=== PATIENT | male | born 1955 | race Caucasian/White ===

== ENCOUNTER 2017-10-20 08:12 | Day surgery (SDC) | payer MEDICAID ==
[~2017-10-20] VITALS: Ht 167.6 cm; Wt 135.5 kg
--- NOTE | ~2017-10-20 | OP ---
PATIENT NAME: LISETTE WRIGHT MEDICAL RECORD: [id number] :59 LOCATION:D.OPS ADMISSION DATE: SURGEON: OCHOA QUIROZ DO DATE OF OPERATION: 10/20/2017 PROCEDURE: Colonoscopy with biopsies. INDICATIONS FOR PROCEDURE: Hematochezia, diarrhea, change in bowel habits. SCOPE: Olympus video pediatric colonoscope. MEDICATIONS: Propofol 360 mg IV per anesthesia. WITHDRAWAL TIME: 13 minutes. ESTIMATED BLOOD LOSS: Minimal. COMPLICATIONS: None. FINDINGS: Informed consent was given. The patient was made comfortable with the above medication. After reaching an adequate level of sedation by slow IV push, the patient was placed on his left side. A digital rectal examination was performed and was normal. The endoscope was then advanced under direct visualization through the rectum to the terminal ileum. The scope was slowly withdrawn and the mucosa was carefully examined. The prep quality was good. There were no polyps or diverticula visualized on today's examination. During the procedure, stool was collected to submit for ruling out of infectious processes, which can cause diarrhea. Random biopsies were taken throughout all segments of the colon. Retroflexion was performed in the rectum with visualization of grade I internal hemorrhoids without evidence of bleeding. The endoscope was then withdrawn from the patient. The patient tolerated the procedure well and there were no complications. IMPRESSION: 1. Grade I internal hemorrhoids. 2. Otherwise, normal colonoscopy. PLAN AND RECOMMENDATIONS: 1. Discharge home when recovery parameters are met. 2. Follow up biopsy specimen results and stool studies. 3. Continue current medications. 4. High fiber diet. 5. Trial of cholestyramine 4 g p.o. b.i.d. to bulk up stool. 6. Consider Viberzi if cholestyramine is ineffective or subpar to control the loose stools. 7. Recall colonoscopy in 7 to 10 years for colorectal cancer screening. TRANSINT:[id number] Voice Confirmation ID: [id number] DOCUMENT ID: [id number] OPERATIVE REPORT [id number] LISETTE WRIGHT OCHOA QUIROZ DO CC: [id number] DICTATION DATE: 10/20/17 1049 GENERAL ADMINISTRATOR: 10/20/17 1248 [facility] 10/20/17 [place] [address]
[2017-10-20] MEDS ORDERED: OMEPRAZOLE20 M1 PO (08:31)
[2017-10-20] MEDS ORDERED: LOVASTATIN10 MG PO (08:32)
[2017-10-20] MEDS ORDERED: ZESTORETIC 20/21 TAB PO (08:32)
[2017-10-20] MEDS ORDERED: TOPROL XL100 MG PO (08:32)
[2017-10-20] MEDS ORDERED: ASPIRIN81 MG PO (08:34)
[2017-10-20] MEDS ORDERED: CYCLOBENZAPRINE10 MG PO (08:34)
[2017-10-20] MEDS ORDERED: FISH OIL 1,2001 CAP PO (08:35)
[2017-10-20] MEDS ORDERED: REQUIP1 MG PO (08:36)
[2017-10-20] MEDS ORDERED: ACETAMINOPHEN500 M1 PO (08:37)
[2017-10-20] MEDS ORDERED: VOLTAREN75 MG PO (08:37)
[2017-10-20] MEDS ORDERED: CENTRUM SILVER1 TA1 PO (08:37)
[2017-10-20] MEDS ORDERED: MELATONIN5 MG PO (08:38)
[2017-10-20] MEDS ORDERED: ACIDOPHILUS LAC1 CAP PO (08:38)
[2017-10-20] MEDS ORDERED: BANOPHEN25 MG PO (08:40)
[2017-10-20] MEDS ORDERED: IMODIUM2 MG PO (08:43)
[2017-10-20 08:53] VITALS: Ht 167.6 cm; Wt 135.5 kg
[2017-10-20 10:13] LABS: BASOPHILS 0.3 % (0-2); EOSINOPHILS 0.3 % (0-7); HEMATOCRIT 44.7 % (42.0-54.0); HEMOGLOBIN 15.3 g/dL (13.5-17.5); IMMATURE GRANULOCYTES 0.4 % (0-5); LYMPHOCYTES 17.8 % (15-50); MCH 32.8 pg (26.0-34.0); MCHC 34.2 g/dL (31.0-37.0); MCV 95.9 fL (80.0-100.0); MEAN PLATELET VOLUME 9.5 fL (7.4-10.4); MONOCYTES 8.5 % (2-11); NEUTROPHILS 72.7 % (40-80); PLATELET COUNT 264 10x3/uL (130-400); RBC 4.66 10x6/uL (4.20-6.10); RDW 13.1 % (11.5-14.5); WBC 11.3 10x3/uL (4.8-10.8)
== END 2017-10-20 12:05 | disposition home or self-care (01) ==
LOC: D.OPS 08:12
PROVIDERS: Anesthesiology
DX: K52.832 Lymphocytic colitis (principal); K64.0 First degree hemorrhoids; Z01.812 Encounter for preprocedural laboratory examination

== ENCOUNTER 2020-01-19 06:15 | Day surgery (SDC) | payer BC ==
[2020-01-18 11:29] LABS: HEMATOCRIT 42.7 % (42.0-54.0); HEMOGLOBIN 13.9 g/dL (13.5-17.5); MCH 31.4 pg (26.0-34.0); MCHC 32.6 g/dL (31.0-37.0); MCV 96.6 fL (80.0-100.0); MEAN PLATELET VOLUME 9.2 fL (7.4-10.4); RBC 4.42 10x6/uL (4.20-6.10); RDW 12.9 % (11.5-14.5); WBC 7.1 10x3/uL (4.8-10.8)
[2020-01-18 11:46] LABS: ANION GAP 12.4 mmol/L (8-16); CALCIUM 8.8 mg/dL (8.5-10.1); CARBON DIOXIDE 25.8 mmol/L (21.0-32.0); CREATININE - SERUM 1.2 mg/dL (0.6-1.3); POTASSIUM - SERUM 4.2 mmol/L (3.5-5.1)
[~2020-01-19] VITALS: Ht 167.6 cm; Wt 128.4 kg
--- NOTE | ~2020-01-19 | OP ---
PATIENT NAME: LISETTE WRIGHT MEDICAL RECORD: [id number] :57 LOCATION:D.OPS ADMISSION DATE: SURGEON: ALLISON BARTON DPM DATE OF OPERATION: 01/19/2020 PREOPERATIVE DIAGNOSES: 1. Hammertoe, right hallux. 2. Hammertoe, right second digit. POSTOPERATIVE DIAGNOSES: 1. Hammertoe, right hallux. 2. Hammertoe, right second digit. PROCEDURES: 1. Right hallux IPJ fusion. 2. Right second PIPJ arthroplasty. 3. Right flexor tenotomy. ANESTHESIA: General with local infiltrate utilizing lidocaine and Marcaine plain, 10 cc total around the first and second digit. HEMOSTASIS: Right ankle tourniquet at 250 mmHg. PREOPERATIVE DETAILS: The patient was brought to the hospital today due to significant pain and discomfort and limitation of the right first and second toe for the last several months. Conservative treatment has failed. The patient was taken to the OR and placed on the operating table in a supine position. This was followed by induction of general anesthesia and infiltration of local anesthetic. The right extremity was then prepped and draped in the usual aseptic technique followed by exsanguination and inflation of tourniquet. PROCEDURE #1: Right hallux IPJ fusion. A 15 blade was used to make a transverse incision on the dorsal aspect of the right hallux IPJ. The incision was deepened down through subcutaneous tissue to the extensor longus tendon, which was transected giving access to the joint. A sagittal saw was used to resect the joint. A K-wire was placed for temporary fixation. Excellent alignment was noted. Therefore, a 4.0 screw, 48-mm in length was placed over the pin compressing the fusion site excellently and under rigid internal fixation. The wound was flushed. Extensor longus tendon was repaired with 2-0 Vicryl. The skin was then closed with 4-0 Rapide in simple interrupted technique followed by Dermabond. The incision on the distal aspect of the toe was also closed with 4-0 Rapide in a simple interrupted technique followed by Dermabond. PROCEDURE #2: Right second digit PIPJ arthroplasty. A transverse incision was made over the dorsal aspect of the PIPJ. The incision was deepened down to the extensor longus tendon, which was transected. The head of the proximal phalanx was then delivered. A sagittal saw was used to resect the proximal phalanx. The wound was flushed. The extensor longus tendon was repaired with 4-0 Rapide and the skin was closed with 4-0 Rapide in a simple interrupted technique. PROCEDURE #3: Right flexor tenotomy. A 15-blade was used to create a small stab incision under the plantar aspect of the second ray. The incision was deepened down to the flexor tendon, which was isolated and transected allowing reduction of the contracture at the digit. The wound was flushed and the skin OPERATIVE REPORT [id number] LISETTE WRIGHT was closed with 4-0 Rapide in a simple interrupted technique followed by Dermabond. Adaptic, 4 x 4 and Conform were used to dress the wounds followed by Kerlix and Toni wrap. Tourniquet was deflated. POSTOPERATIVE DETAILS: The patient tolerated the procedure well and left the OR with vital signs stable and vascular status at preoperative levels. The patient was transported to recovery per anesthesia in stable condition. TRANSINT:[id number] Voice Confirmation ID: [id number] DOCUMENT ID: [id number] ALLISON BARTON DPM CC: [id number] DICTATION DATE: 01/19/20 1144 HOGSHEAD STOCK CLERK: 01/19/20 1400 [facility] [address] [place] [address]
[~2020-01-19 06:15] MED LIST: ACETAMINOPHEN500 M1 PO; ACIDOPHILUS LAC1 CAP PO; ASPIRIN81 MG PO; BANOPHEN25 MG PO; CENTRUM SILVER1 TA1 PO; CYCLOBENZAPRINE10 MG PO; FISH OIL 1,2001 CAP PO; IMODIUM2 MG PO; LOVASTATIN10 MG PO; MELATONIN5 MG PO; OMEPRAZOLE20 M1 PO; REQUIP1 MG PO; RYTARY ER 36.21 EACH PO; SKELAXIN800 MG PO; STOOL SOFTENER100 M1 PO; TOPROL XL100 MG PO; TRAZODONE HCL150 MG PO; TYLENOL ARTHRI650 MG PO; ULTRAM50 MG PO; VOLTAREN75 MG PO; ZESTORETIC 20/21 TAB PO
[2020-01-19 07:37] VITALS: BP 130/73; Ht 167.6 cm; Wt 128.4 kg
--- NOTE | 2020-01-19 13:43 | NUR ---
1315-REMOVED IV WITH CATH INTACT,DISPOSED INTO SHARPS,COVERED WITH GUAZE,SECURED WITH MEDIPORE TAPE.
--- NOTE | 2020-01-19 13:45 | NUR ---
1325-REVILEWED POST OPERATIVE INSTRUCTIONS AND TO CALL FOR 1 WK FOLLOW UP. VERBALIZED UNDERSTANDING.
--- NOTE | 2020-01-19 13:46 | NUR ---
1330- ESCORTED OUT VIA W/C WITH SPOUSE AWAITING TO DRIVE HOME.
== END 2020-01-19 13:30 | disposition home or self-care (01) ==
LOC: D.PAN → D.OPS 06:15 → D.PAN 08:45 → D.OPS 13:30
PROVIDERS: Anesthesiology; ATTEND Podiatrist
DX: M20.41 Other hammer toe(s) (acquired), right foot (principal); I10 Essential (primary) hypertension